=== PATIENT | male | born 1960 | race African-American/Black ===

== ENCOUNTER 2016-05-29 08:48 | Emergency (ER) | payer BC, OTHER ==
--- NOTE | ~2016-05-29 | CT2 ---
[facility] A Service of [facility] RADIOLOGY TEXT RESULTS PATIENT: SNEHA HSU LOCATION: SED : 62 UNIT #: [id number] AGE: [address]: Kody Dunham MD SEX: M ORDER DR: [id number] [place] [id number] MR#: [id number] Acc #: [id number] NAME: SNEHA HSU : 1960 SEX: M STUDY DATE/TIME: 05/29/2016 11:30 UNIT: SED ROOM: STUDY DESCRIPTION: CT Abd and Pelv W Cont Attending Physician: Kody Dunham M.D. Ordering Physician: Kody Dunham M.D. Primary Care Physician: Sneha Mendoza M.D. MEDICAL IMAGING REPORT This report is preliminary unless electronic signature is present. EXAM CT abdomen and pelvis with contrast, 05/29/2016 11:30 hours HISTORY 55-year-old man complaining of bilateral groin pain and numbness of the penis for 3 weeks. COMPARISON None TECHNIQUE Dynamic helical CT images were obtained from the lung bases through the pubic symphysis with intravenous contrast. Isovue-370, 100 mL IV. Total exam DLP 1413 mGy-cm. This CT exam was performed with one or more of the following radiation dose reduction techniques: automatic exposure control, adjustment of mA and/or kV according to patient size, and iterative reconstruction. FINDINGS Images through the lung bases are clear. The distal esophagus is normal. There is no pericardial or pleural fluid. Images through the abdomen demonstrate diffuse fatty infiltration of the liver. There is no focal liver lesion. The spleen, pancreas, gallbladder and bile ducts are normal. The adrenal glands are normal. The kidneys enhance normally with no mass, stone or distension. The abdominal aorta is normal in caliber. The stomach is not well distended but appears normal. There is no small bowel distension or small bowel wall thickening. The appendix is normal. The colon is unremarkable. [facility] A Service of [facility] RADIOLOGY TEXT RESULTS PATIENT: SNEHA HSU LOCATION: SED : 62 UNIT #: [id number] AGE: [address]: Kody Dunham MD SEX: M ORDER DR: CT pelvis demonstrates a normal appearance to the seminal vesicles, prostate and bladder. The inguinal regions demonstrate no definite hernias. There is a well-defined hyperdensity/calcification along the left spermatic cord measuring 7.0 mm on image 95 likely old granulomatous calcification with a smaller calcification seen more inferiorly along the right spermatic cord. There is no CT evidence in the penis or upper scrotum. The bone window images demonstrate endplate degenerative changes in the lower thoracic spine and upper lumbar spine. There is no fracture or canal stenosis. 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 IMPRESSION 1. No acute findings in the abdomen or pelvis. 2. Diffuse fatty infiltration of the liver. 3. Normal small bowel, colon and appendix. 4. No renal or ureteral calculi. 5. There are calcifications along the left and right spermatic cord measuring 7.0 mm on the left and 3.0 mm on the right of doubtful clinical significance. There are no inguinal herniae. 6. Imaging through the penis and scrotum appears normal. 7. Degenerative changes in the spine with no evidence of canal stenosis. 8. There is bony ankylosis at both sacroiliac joints. Dictated by... Astrid Canales M.D. THIS IS AN ELECTRONICALLY VERIFIED REPORT Astrid Canales M.D. at 05/29/2016 6:54 PM YAMILETH/katherine TD: 05/29/2016 15:03 JOB #: [id number] MEDICAL IMAGING REPORT Page 1 of 1
[~2016-05-29 08:48] MED LIST: "\\\"BP MED\\\""; BENZONATATE PO; CRESTOR10 MG PO; ERYTHROMYCIN B500 MG OP; FLURBIPROFEN100 MG OP; MEDROL4 MG/DOSE- PO; NAMENDA10 MG; NO MEDICATIONS; PAIN MED; PREDNISONE PO; TAMIFLU75 M1 PO; VICODIN 5/1 TAB 5/50 PO; VICODIN PO
[2016-05-29 09:02] LABS: URINE SOURCE CLEAN CATCH
[2016-05-29 09:16] LABS: URINE APPEARANCE CLEAR; URINE BILIRUBIN NEG (NEG); URINE COLOR YELLOW; URINE GLUCOSE NEG (NORM); URINE KETONE NEG (NEG); URINE LEUKOCYTE ESTERASE NEG (NEG); URINE NITRATE NEG (NEG); URINE PROTEIN NEG (NEG)
[2016-05-29 09:19] LABS: DIFF IND NO
[2016-05-29 09:32] LABS: MICRO INDICATED? NO; URINE BLOOD NEG (NEG)
[2016-05-29 11:32] LABS: BASOPHIL# 0.1 X10e3 (0-0.3); BASOPHIL% 2.6 % (0-2.5); EOSINOPHIL# 0.8 X10e3 (0-0.7); EOSINOPHIL% 16.9 % (0.0-7.0); HEMATOCRIT 42.1 % (38.0-50.0); LYMPHOCYTE# 1.6 X10e3 (1.0-3.5); LYMPHOCYTE% 31.9 % (17.0-45.0); MEAN CORPUSCULAR HEMOGLOBIN 33.6 PG (28-34); MEAN PLATELET VOLUME 8.8 FL (6.5-11.5); MONOCYTE# 0.3 X10e3 (0-1.0); NEUTROPHIL# 2.1 X10e3 (1.5-7.1); NEUTROPHIL% 42.6 % (40-75); RED BLOOD COUNT 4.26 X10e (3.90-5.60); RED CELL DISTRIBUTION WIDTH 14.3 % (11.0-15.5)
[2016-05-29 11:34] LABS: DIFF IND NO; HEMOGLOBIN 14.3 gm/dL (13.0-16.0); MEAN CELL VOLUME 98.8 FL (83-96); PLATELET COUNT 262 X10e3 (140-420)
[2016-05-29 11:37] LABS: ALBUMIN SERUM 4.2 g/dL (3.5-5.0); ALKALINE PHOSPHATASE 81 U/L (32-92); ALT (SGPT) 68 U/L (10-40); AST (SGOT) 33 U/L (10-42); BILIRUBIN,TOTAL 0.2 mg/dL (0.2-2.0); BLOOD UREA NITROGEN 15 mg/dL (9-23); CALCIUM SERUM 8.7 mg/dL (8.4-10.2); CARBON DIOXIDE 23 mmol/L (22-31); CHLORIDE 108 mmol/L (100-111); GLOM FILT RATE Estimated ABOVE60 mL/min (>60); GLUCOSE FASTING 142 mg/dL (70-110); POTASSIUM 3.6 mmol/L (3.5-5.1); PROTEIN TOTAL SERUM 7.1 g/dL (6.0-8.3); SODIUM 141 mmol/L (135-145)
[2016-05-29 11:39] LABS: BILIRUBIN,INDIRECT 0.2 mg/dL (0.0-0.9)
[2016-05-31 12:20] LABS: CHLAMYDIA TRACH Not Detected (Not Detected); N GONOR Not Detected (Not Detected)
[2016-12-02] MEDS ORDERED: HYDROCODON-ACE1 EAC7 PO (06:42)
== END 2016-05-29 12:57 | disposition home or self-care (01) ==
LOC: SED 08:48
PROVIDERS: Emergency Medicine
DX: R10.30 Lower abdominal pain, unspecified (principal); R20.9 Unspecified disturbances of skin sensation; I10 Essential (primary) hypertension; F17.210 Nicotine dependence, cigarettes, uncomplicated
CPT/HCPCS: 36415; 74177; 80048; 80076; 81003; 85025; 87491; 87591; 99284; Q9967